=== PATIENT | male | born 1945 | race Caucasian/White ===

== ENCOUNTER 2016-06-22 17:53 | Inpatient (IN) | payer OTHER ==
[~2016-06-22] VITALS: Ht 185.4 cm; Wt 115.0 kg
--- NOTE | ~2016-06-22 | H ---
[facility] [place] [address] HISTORY AND PHYSICAL Name: GARRETCHRYSTAL IESHA Room #: 202-P ADM IN M.R.#: [id number] Admission: 06/22/16 Attend Phys: Theodora Pacheco MD Discharge: Date of : 49 Report #: [id number] THIS REPORT FOR: //name// CC: Katelynn Pacheco DATE OF ADMISSION: 06/22/2016 DATE SEEN: 06/22/2016 ATTENDING PHYSICIAN: Dr. Theodora Pacheco. PRIMARY CARE PHYSICIAN: Katelynn Brown DO CHIEF COMPLAINT: Altered mental status. HISTORY OF PRESENT ILLNESS: The patient is a 70-year-old male who was brought into the ER by his daughter due to confusion. 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 He became more lethargic and was not replying when asked questions, and so they brought him into the ER. He does have a recent history of influenza and had been on influenza B and had been on Tamiflu and was sick for about a week, but then his symptoms has improved. This was about 2-3 weeks ago. He was also acting short of breath. He does have a history of COPD. His reported that he has 30% use of his lungs. He does wear 6 liters of oxygen at home. His daughter thought he had been having an increased cough. In the ER, he was febrile on arrival with a temperature of 38.6. He was also tachypneic. His mentation improved somewhat after fluid bolus. He was incontinent of stool in the ER as well and was very loose. He was given a dose of Ativan because of anxiety and Tylenol and a breathing treatment. The patient remains confused. He is unable to tell me the current date including the month or the year. When asked the day he kept stating his birthday. He was able to tell me it was Saturday night. He is somewhat fidgety and trying to hit buttons on his call light. As I am talking to him, he is only answering questions and one word responses. He does remain alert. PAST MEDICAL HISTORY: Oxygen dependent COPD, PE, degenerative joint disease. PAST SURGICAL HISTORY: Right hip replacement and bilateral inguinal hernia repair. ALLERGIES: None. HOME MEDICATIONS: Albuterol inhaler 2 puffs q. 4 hours p.r.n., fish oil 1000 mg daily, [place] 10/325 one tab q. 4 hours p.r.n. pain, clonazepam 1 mg b.i.d., [address] [address] HISTORY AND PHYSICAL Name: CHRYSTAL COMBS Room #: [facility] IN M.R.#: [id number] Admission: 06/22/16 Attend Phys: Theodora Pacheco MD Discharge: Date of : 49 Report #: [id number] Colace 100 mg daily, multivitamin daily. SOCIAL HISTORY: The patient is an ex-smoker, having quit in 1977, according to old records, he had been a previous smoker up to a pack per day for 16 years. He states he is retired, but apparently his family states he still occasionally works as a chiropractor. No reports of any prior alcohol or drug use. He lives at home with his . FAMILY HISTORY: Significant for heart disease and colon cancer according to previous records. REVIEW OF SYSTEMS: Unobtainable due to altered mental status. PHYSICAL EXAMINATION: GENERAL: The patient is a confused male in no acute distress. VITAL SIGNS: Temperature is 38.6, heart rate 103, respirations 26 and blood pressure is 141/75, oxygen 91% on 6 liters O2. HEENT: PERRLA. Sclerae is nonicteric. Oral mucosa is pink and dry. He does have some cracked lips since and whitish coating on his teeth. NECK: Supple, no JVD noted. CARDIOVASCULAR: Normal S1, S2. No murmurs, rubs or gallops. RESPIRATORY: Breath sounds are clear throughout. No wheezing or rhonchi. His breathing is somewhat shallow and labored appearing and he has a mouth breather. ABDOMEN: Round, soft, nontender with hypoactive bowel sounds. VASCULAR: Pedal pulses are 1+ bilaterally. His feet are somewhat cool. No peripheral edema noted. NEUROLOGIC: The patient is alert, but confused. He is unable to tell me the current month or year and he just kept repeating his date when asked the current date. He will follow commands. He is somewhat restless in bed, but he was moving everything equally. He is minimally communicative. He really only answers in one word sentences. SKIN: Intact. No rashes or lesions. LABORATORY AND DIAGNOSTIC DATA: WBC is 9.3, hemoglobin 16.3, platelets 244. Sodium is 139, potassium 4.0, BUN 20, creatinine 1.1, glucose 112. Lactate 1.2. LFTs are within normal limits. Troponins negative. Alcohol level is less than 10. Chest x-ray showed no acute findings. CT of the abdomen does show findings more suggestive of mild nonspecific colitis involving the ascending and transverse colon. No other acute appearing abnormalities are identified and EKG showing sinus tachycardia, rate of 103 with an old inferior infarct. ASSESSMENT AND PLAN: 1. Systemic inflammatory response syndrome. Source of infection is likely colitis, although we do need to rule out UA waiting on urinalysis. We will follow blood cultures, he has received 2 liters of fluid in the ER already, continue with maintenance fluids, his blood pressure is stable. Continue with [facility] [address] [place] [address] HISTORY AND PHYSICAL Name: CHRYSTAL COMBS Room #: 202-P ADM IN M.R.#: [id number] Admission: 06/22/16 Attend Phys: Theodora Pacheco MD Discharge: Date of : 49 Report #: [id number] Cipro and Flagyl and Tylenol p.r.n. 2. Colitis, see above. We will also add stool for culture and C. difficile and keep him on clear liquids. 3. Altered mental status, likely toxic encephalopathy related to underlying infection. We did check an ABG after arrival to the floor and it was other than some mild hypoxia, was within normal limits. Continue to monitor neuro status. 4. Chronic hypoxic respiratory failure. He does have oxygen dependent COPD. His ABGs do not show any CO2 retention, we will continue with oxygen and add breathing treatments, chest x-ray was clear. 5. Deep vein thrombosis prophylaxis: Start Lovenox. We will continue to follow the patient closely throughout the hospitalization and make changes based on clinical status. <ELECTRONICALLY SIGNED> By: GÓMEZ Shen 06/23/16 0433 0110 0348 GÓMEZ Shen /nt
--- NOTE | ~2016-06-22 | EKG ---
[address] [place] [address] ELECTROCARDIOGRAM REPORT Name: CHRYSTAL COMBS Room #: 202-P ADM IN M.R.#: [id number] Admission: 06/22/16 Attend Phys: Theodora Pacheco MD Discharge: Date of : 49 Report #: [id number] THIS REPORT FOR: //name// [facility] ED Test Date: 2016-06-22 Test Time: 18:13:40 Pat Name: CHRYSTAL COMBS Department: Room: 202 Gender: M Pathology Teacher: KKODJOVI : 1945 Requested By: Elisa Modi Order Number: [id number] MD: Salty Ordonez Measurements Intervals [place] Rate: 103 P: 42 OK: 153 QRS: 84 QRSD: 105 T: 63 QT: 331 QTc: 434 Interpretive Statements Sinus tachycardia Right ventricular conduction delay Compared to ECG 06/15/2013 09:11:58 no significant change was found Electronically Signed On 06-24-2016 14:54:16 CDT by Salty Ordonez [email or web address] <ELECTRONICALLY SIGNED> By: Salty Ordonez MD, [facility] 06/24/16 1454 12 12 Salty Ordonez MD, FAC /EPI
--- NOTE | ~2016-06-22 | S ---
[facility] [place] [address] SURGICAL PATH RPT PROCEDURE Name: CHRYSTAL COMBS Room #: 202-P DIS IN M.R.#: [id number] Admission: 06/22/16 Date of : 49 Discharge: 06/27/16 Report #: [id number] Path Case #: [id number] PATHOLOGY REPORT COLLECTION DATE: 06/26/2016 RECEIVED DATE: 06/26/2016 SUBMITTING PHYS: Dr. Jg Dudley OTHER PHYS: Dr. Marco Brown SPECIMEN(S) RECEIVED: A.Cecum and ascending colon bx B.Transverse and splenic flex colon bx * * * * * * * * * * * * FINAL DIAGNOSIS: A. "Cecum and ascending colon bx," biopsy: - Colonic mucosa with mild diffuse and active acute colitis. (see comment) B. "Transverse splenic flex colon bx," biopsy: - Colonic mucosa with mild diffuse and active acute colitis. (see comment) COMMENT: Both specimens A and B are similar histologically. The pattern of inflammation is suggestive of acute infectious type colitis. Chronic idiopathic inflammatory bowel disease is also a diagnostic consideration but is considered less likely. Significant chronic architectural changes are absent. Clinical and endoscopic correlation is required. No dysplasia is seen in either of the biopsies. (CLW:; d/t: 06/27/16) PATHOLOGIST: Jessie Avila M.D. REPORT ELECTRONICALLY SIGNED BY: Jessie Avila M.D. DATE/TIME: 06/27/2016 22:03 * * * * * * * * * * * * GROSS PATHOLOGY: A. Received in formalin labeled "Chrystal Combs, cecum and ascending colon biopsy, colitis, R/O IBD," are five segments of mercedes soft tissue measuring 0.8 x 0.8 x 0.1 cm in aggregate dimensions and ranging from 0.2 to 0.5 cm in maximum dimension. The specimen is submitted entirely in cassette A1. B. Received in formalin labeled "Chrystal Combs, transverse and splenic [address] [address] SURGICAL PATH RPT PROCEDURE Name: CHRYSTAL COMBS Room #: 202-P DIS IN M.R.#: [id number] Admission: 06/22/16 Date of : 49 Discharge: 06/27/16 Report #: [id number] Path Case #: [id number] flexure biopsy, colitis, R/O IBD," are five segments of mercedes soft tissue measuring 1.0 x 0.8 x 0.2 cm in aggregate dimensions and ranging from 0.3 to 0.5 cm in maximum dimension. The specimen is submitted entirely in cassette B1. (CAA; 06/26/2016) CLINICAL HISTORY: Pre-op diagnosis: Abnormal CT, colitis Post-op diagnosis: Colitis, R/O IBD INITIAL CPT CODE(S): A; 69082 B; 75404 Professional services performed by [facility] at [address] , [place] [address] Technical services performed by [facility] at [address] [place] [address], [address], [place] [address]. [facility] [address] [place] [address] PHONE: [phone] DIRECTOR: Carter Ladd M.D. * * * END OF REPORT * * *
[~2016-06-22 17:53] MED LIST: ACCUNEB SO1.25 MG/1 INH; ALBUTEROL2.5 MG/0.1 INH; CLONAZEPAM 0.50.5 M1 PO; CLONAZEPAM 1 MG1 M1 PO; COLACE100 MG PO; COMBIVENT INH; COMBIVENT RESPIM4 GM INH; FISH OIL + D31 EACH PO; HAIR, SKIN & N1 EAC1 PO; MULTI VITAMIN1 EACH PO; NORCO 5-325 TA1 EACH PO; NYSTATIN15 GM; OMEGA-31000 M1 PO; PROAIR HFA8.5 GM INH; REMERON 30 MG T30 M1 PO; RESTORIL30 MG PO; SENNA PO; SYMBICORT160 MCG/4. INH; XARELTO15 MG PO; XARELTO20 MG PO
[2016-06-22 17:54] VITALS: BP 141/75
[2016-06-22 18:15] LABS: ABSOLUTE NEUTROPHILS 7.3 thou/uL (1.4-8.2); BASOPHILS 0.5 % (0.0-2.0); EOSINOPHILS 0.2 % (0.0-3.0); HEMATOCRIT 47.5 % (42.0-52.0); HEMOGLOBIN 16.3 gm/dL (14.0-18.0); LYMPHOCYTES 11.5 % (24.0-44.0); MCH 30.1 pg (26.0-34.0); MCHC 34.3 g/dL (28.0-37.0); MCV 87.8 fL (80.0-100.0); MONOCYTES 9.5 % (1.0-8.0); PLATELET COUNT 244 thou/uL (150-400); POLYS 78.3 % (36.0-66.0); RBC 5.41 mil/uL (4.50-6.00); RDW 14.7 % (10.5-14.5); WBC 9.3 thou/uL (4.0-11.0)
[2016-06-22 18:18] LABS: MANUAL DIFF NO
[2016-06-22 18:26] LABS: ANION GAP 8 mmol/L (7-16); BUN 20 mg/dL (7-18); CALCIUM 9.7 mg/dL (8.5-10.1); CHLORIDE 102 mmol/L (98-107); CO2 29 mmol/L (21-32); CREATININE 1.1 mg/dL (0.7-1.3); GLUCOSE 112 mg/dL (74-106); SODIUM 139 mmol/L (136-145)
[2016-06-22 18:36] LABS: ALBUMIN 3.6 g/dL (3.4-5.0); ALKALINE PHOSPHATASE 63 U/L (46-116); SGOT 34 U/L (15-37); SGPT 48 U/L (30-65); TOTAL BILIRUBIN 0.6 mg/dL (<0.1-1.0); TOTAL PROTEIN 8.1 g/dL (6.4-8.2); TROPONIN-I < 0.04 ng/mL (<0.04-0.07)
[2016-06-22 21:29] VITALS: BP 150/74
[2016-06-22 22:00] VITALS: BP 131/74
[2016-06-23 00:26] LABS: ABG SAMPLE TYPE ARTERIAL; BE(vivo) -3.1 mmol/L (-2 to +3); HCO3 20.2 mmol/L (22.0-26.0); LACTATE 1.12 mmol/L (0.5-2.0); O2Hb 93.6 % (92.0-98.0); PCO2 31.2 mmHg (35.0-45.0); STICK SITE L.RADIAL; pH 7.428 (7.360-7.450); sO2 94.5 % (92.0-98.0); tCO2 21.1 mmol/L (24.0-30.0)
[2016-06-23 04:12] LABS: HEMATOCRIT 41.3 % (42.0-52.0); HEMOGLOBIN 14.4 gm/dL (14.0-18.0); MCH 30.4 pg (26.0-34.0); MCHC 34.8 g/dL (28.0-37.0); MCV 87.3 fL (80.0-100.0); RBC 4.72 mil/uL (4.50-6.00); RDW 14.4 % (10.5-14.5); WBC 10.4 thou/uL (4.0-11.0)
[2016-06-23 04:19] LABS: CALCIUM 8.6 mg/dL (8.5-10.1); CREATININE 0.9 mg/dL (0.7-1.3); POTASSIUM 3.6 mmol/L (3.5-5.1)
[2016-06-23 05:26] LABS: URINE BILIRUBIN NEGATIVE (Negative); URINE BLOOD 2+ (Negative); URINE COLOR YELLOW; URINE GLUCOSE-RANDOM* NEGATIVE (Negative); URINE KETONES 1+ (Negative); URINE LEUKOCYTES-REFLEX NEGATIVE (Negative); URINE PROTEIN (DIPSTICK) NEGATIVE (Negative); URINE SPECIFIC GRAVITY 1.025 (1.003-1.035); URINE UROBILINOGEN 0.2 E.U./dl (0.2-1.0)
[2016-06-23 05:34] LABS: SQUAMOUS 0-3 Few /LPF (0-3)
[2016-06-23 05:35] LABS: CASTS None Seen /LPF (None Seen); CRYSTALS None Seen /LPF (None Seen); URINE WBC-REFLEX 0-5 Rare /HPF (0-5)
[2016-06-23 08:00] VITALS: BP 200/103
[2016-06-23 08:54] LABS: ABG SAMPLE TYPE ARTERIAL; BE(vivo) -3.5 mmol/L (-2 to +3); HCO3 19.7 mmol/L (22.0-26.0); O2(CT) 20.2 mL/dL (15.0-23.0); O2Hb 94.5 % (92.0-98.0); PCO2 31.2 mmHg (35.0-45.0); PO2 72.2 mmHg (80.0-100.0); pH 7.419 (7.360-7.450); tCO2 20.7 mmol/L (24.0-30.0)
[2016-06-23 08:55] LABS: STICK SITE L.RADIAL
[2016-06-23 10:47] VITALS: BP 128/88
[2016-06-23 16:08] VITALS: BP 198/106
[2016-06-24 03:14] VITALS: BP 105/59
[2016-06-24 04:23] LABS: CALCIUM 8.9 mg/dL (8.5-10.1); CREATININE 0.9 mg/dL (0.7-1.3); POTASSIUM 3.6 mmol/L (3.5-5.1)
[2016-06-24 07:10] VITALS: BP 101/52
[2016-06-24 10:46] LABS: HEMATOCRIT 40.5 % (42.0-52.0); HEMOGLOBIN 13.5 gm/dL (14.0-18.0); MCH 29.5 pg (26.0-34.0); MCHC 33.3 g/dL (28.0-37.0); MCV 88.7 fL (80.0-100.0); PLATELET COUNT 214 thou/uL (150-400); RBC 4.56 mil/uL (4.50-6.00); RDW 14.7 % (10.5-14.5); WBC 11.1 thou/uL (4.0-11.0)
[2016-06-24 10:47] LABS: MANUAL DIFF YES
[2016-06-24 11:10] VITALS: BP 107/62
[2016-06-24 11:36] LABS: ABSOLUTE NEUTROPHILS 8.3 thou/uL (1.4-8.2); TOTAL CELL COUNT 100
[2016-06-24 11:37] LABS: ANISOCYTOSIS 1+
[2016-06-24 17:15] VITALS: BP 112/73
[2016-06-24 19:16] VITALS: BP 126/76
[2016-06-25 03:10] VITALS: BP 105/56
[2016-06-25 03:31] LABS: HEMATOCRIT 37.5 % (42.0-52.0); HEMOGLOBIN 12.9 gm/dL (14.0-18.0); MCH 29.9 pg (26.0-34.0); MCHC 34.3 g/dL (28.0-37.0); RBC 4.3 mil/uL (4.50-6.00); RDW 13.9 % (10.5-14.5)
[2016-06-25 03:44] LABS: CREATININE 0.8 mg/dL (0.7-1.3); POTASSIUM 3.5 mmol/L (3.5-5.1)
[2016-06-25 08:00] VITALS: BP 122/65
[2016-06-25 16:27] VITALS: BP 124/81
[2016-06-25 19:24] VITALS: BP 122/6
[2016-06-26 00:01] VITALS: BP 106/66
[2016-06-26 03:27] VITALS: BP 133/74
[2016-06-26 10:00] VITALS: BP 136/79
[2016-06-26 10:16] LABS: WBC 9.9 thou/uL (4.0-11.0)
[2016-06-26 10:17] LABS: HEMATOCRIT 40.9 % (42.0-52.0); HEMOGLOBIN 13.9 gm/dL (14.0-18.0); MCHC 33.9 g/dL (28.0-37.0); MCV 88.4 fL (80.0-100.0); PLATELET COUNT 248 thou/uL (150-400); RBC 4.63 mil/uL (4.50-6.00); RDW 14.8 % (10.5-14.5)
[2016-06-26 10:20] LABS: MANUAL DIFF YES
[2016-06-26 11:15] LABS: ABSOLUTE NEUTROPHILS 6.4 thou/uL (1.4-8.2); TOTAL CELL COUNT 100
[2016-06-26 11:22] LABS: CALCIUM 8.6 mg/dL (8.5-10.1); CREATININE 0.8 mg/dL (0.7-1.3); POTASSIUM 3.2 mmol/L (3.5-5.1)
[2016-06-26 16:15] VITALS: BP 109/56
[2016-06-26 19:14] VITALS: BP 132/55
[2016-06-27] VITALS (7 sets, daily range): BP systolic 132–144; BP diastolic 70–86
[2016-06-27 03:15] LABS: HEMATOCRIT 38.3 % (42.0-52.0); MCH 29.6 pg (26.0-34.0); MCHC 33.8 g/dL (28.0-37.0); MCV 87.6 fL (80.0-100.0); RBC 4.38 mil/uL (4.50-6.00); RDW 14.6 % (10.5-14.5)
[2016-06-27 03:28] LABS: CALCIUM 8.9 mg/dL (8.5-10.1); CREATININE 0.8 mg/dL (0.7-1.3); POTASSIUM 3.5 mmol/L (3.5-5.1)
[2016-06-27] MEDS ORDERED: CIPRO500 MG PO (12:56)
[2016-06-27] MEDS ORDERED: FLAGYL500 MG PO (12:57)
[2016-06-27] MEDS ORDERED: FLOMAX0.4 MG PO (12:57)
== END 2016-06-27 18:40 | disposition home health service (06) | DRG 871 ==
LOC: ER 17:53 → EROBS 20:09 → 2N 20:09
PROVIDERS: Hospitalist; Nurse Practitioner Acute Care; Physician Assistant
PROC: 02HV33Z Insertion of Infusion Device into Superior Vena Cava, Percutaneous Approach (ICD-10-PCS; 2016-06-25)
PROC: B548ZZA Ultrasonography of Superior Vena Cava, Guidance (ICD-10-PCS; 2016-06-25)
PROC: 0DBH8ZX Excision of Cecum, Via Natural or Artificial Opening Endoscopic, Diagnostic (ICD-10-PCS; principal; 2016-06-26)
PROC: 0DBK8ZX Excision of Ascending Colon, Via Natural or Artificial Opening Endoscopic, Diagnostic (ICD-10-PCS; principal; 2016-06-26)
PROC: 0DBL8ZX Excision of Transverse Colon, Via Natural or Artificial Opening Endoscopic, Diagnostic (ICD-10-PCS; principal; 2016-06-26)
DX: A41.9 Sepsis, unspecified organism (principal); G92 Toxic encephalopathy; J44.1 Chronic obstructive pulmonary disease with (acute) exacerbation; K55.1 Chronic vascular disorders of intestine; J96.11 Chronic respiratory failure with hypoxia; E87.2 Acidosis; M19.90 Unspecified osteoarthritis, unspecified site; E66.9 Obesity, unspecified; E86.0 Dehydration; Z96.641 Presence of right artificial hip joint; K52.9 Noninfective gastroenteritis and colitis, unspecified; Z79.899 Other long term (current) drug therapy; Z86.711 Personal history of pulmonary embolism; Z68.33 Body mass index [BMI] 33.0-33.9, adult; Z87.891 Personal history of nicotine dependence; Z99.81 Dependence on supplemental oxygen; Z82.49 Family history of ischemic heart disease and other diseases of the circulatory system; Z80.0 Family history of malignant neoplasm of digestive organs
CPT/HCPCS: 10081; 27001; 52295; 62110; 62900; 70005

== ENCOUNTER → 2018-05-05 | Outpatient (CLI) | payer OTHER ==
[~2018-05-05] MED LIST changes: +CIPRO500 MG PO; +FLAGYL500 MG PO; +FLOMAX0.4 MG PO
== END ==
LOC: CAT 08:23
DX: Z13.6 Encounter for screening for cardiovascular disorders (principal); E78.00 Pure hypercholesterolemia, unspecified; Z82.49 Family history of ischemic heart disease and other diseases of the circulatory system

== ENCOUNTER 2019-03-28 23:43 | Inpatient (IN) | payer OTHER ==
[~2019-03-28] VITALS: Ht 185.4 cm; Wt 104.4 kg
[2019-03-28 23:48] LABS: BE(vivo) -0.4 mmol/L (-2 to +3); HCO3 26.5 mmol/L (22.0-26.0); PCO2 51.4 mmHg (35.0-45.0); PO2 198.2 mmHg (80.0-100.0); sO2 99.3 % (92.0-98.0)
[2019-03-29] VITALS (22 sets, daily range): BP systolic 91–157; BP diastolic 44–90
[2019-03-29 00:28] LABS: ABSOLUTE NEUTROPHILS 8.5 thou/uL (1.4-8.2); BASOPHILS 0.6 % (0.0-2.0); EOSINOPHILS 0.6 % (0.0-3.0); HEMATOCRIT 46.3 % (42.0-52.0); HEMOGLOBIN 15.3 gm/dL (14.0-18.0); MCH 29.6 pg (26.0-34.0); MCV 89.9 fL (80.0-100.0); PLATELET COUNT 232 thou/uL (150-400); POLYS 77.8 % (36.0-66.0); RBC 5.14 mil/uL (4.50-6.00); RDW 13.9 % (10.5-14.5); WBC 10.9 thou/uL (4.0-11.0)
[2019-03-29 00:31] LABS: ANION GAP 11 mmol/L (7-16); BUN 11 mg/dL (7-18); CALCIUM 9.2 mg/dL (8.5-10.1); CHLORIDE 104 mmol/L (98-107); CO2 27 mmol/L (21-32); CREATININE 0.8 mg/dL (0.7-1.3); GLUCOSE 160 mg/dL (74-106); POTASSIUM 3.5 mmol/L (3.5-5.1); SODIUM 142 mmol/L (136-145)
[2019-03-29] MEDS ORDERED: DALIRESP500 MCG PO (00:38)
[2019-03-29] MEDS ORDERED: AZITHROMYCIN500 MG PO (00:39)
[2019-03-29 00:41] LABS: MAGNESIUM 1.8 mg/dL (1.8-2.4); TROPONIN-I <0.06 ng/mL (<0.06)
[2019-03-29] MEDS ORDERED: FLONASE 0.05%50 MCG NASAL (00:42)
[2019-03-29] MEDS ORDERED: TRELEGY ELLIPT1 EACH INH (00:42)
--- NOTE | 2019-03-29 04:15 | NUR ---
Pt admit to ICU. AAOx4 and anxious noted. He is shortness of breath with any activity, currently on BIPAP due to respiratory failure. Denies of any CP or chest discomfort. Hx obtain, care plans are initiated, continue working toward goals.
--- NOTE | 2019-03-29 10:29 | EKG ---
[place] [address] [facility] [place] [address] ELECTROCARDIOGRAM REPORT Name: CHRYSTAL COMBS Room #: 238-P ADM IN M.R.#: [id number] Admission: 03/29/19 Attend Phys: Yelena Trevino MD Discharge: Date of : 49 Report #: [id number] THIS REPORT FOR: //name// [facility] ED Test Date: 2019-03-29 Test Time: 01:29:29 Pat Name: CHRYSTAL COMBS Department: Room: 238 Gender: M [employer] R12 Developer: MPARK : 1945 Requested By: Julisa Laboy Order Number: [id number] MD: Dennis Dangelo Measurements Intervals [place] Rate: 99 P: 64 DE: 166 QRS: 60 QRSD: 114 T: 63 QT: 395 QTc: 507 Interpretive Statements Sinus rhythm Incomplete right bundle branch block Inferior infarct, old Prolonged QT interval Compared to ECG 06/22/2016 18:13:40 Prolonged QT interval now present Sinus tachycardia no longer present Electronically Signed On 03-29-2019 10:28:43 STEEL RULE DIE MAKER APPRENTICE by Dennis Dangelo [email or web address] <ELECTRONICALLY SIGNED> By: Dennis Dangelo MD 03/29/19 1028 0129 012 Dennis Dangelo MD /SHEBA
--- NOTE | 2019-03-29 17:38 | NUR ---
ASSUMED CARE AT SHIFT CHANGE, ALERT AND ORIENTED X4. VSS AND SR ON THE MONITOR. PATIENT REQUESTED THE OPTIFLOW, WAS PUT ON OPTOFLO AND JOSEFINA REMAINED 89-95. VISITED AND WILL CONTINUE WITH POC.
[2019-03-30] VITALS (19 sets, daily range): BP systolic 77–179; BP diastolic 45–96
--- NOTE | 2019-03-30 06:00 | NUR ---
AWAKE AND ALERT. A VERY SWEET GENTLEMAN. LUNGS REMAIN DIMINISHED. AFEBRILE. BIPAP 70 % VOIDED 700 CC JOSE URINE. BATHED. REMAINS IN ISOLATIION + FLU WILL CONT TO MONITOR.
[2019-03-30 06:18] LABS: CALCIUM 9.1 mg/dL (8.5-10.1); CREATININE 0.9 mg/dL (0.7-1.3); POTASSIUM 3.8 mmol/L (3.5-5.1)
--- NOTE | 2019-03-30 13:52 | NUR ---
Assumed care at 0700. PT was on BIPAP and requesting to be changed to the optiflow. Dr. Hazel and Dr. Reyes rounded on the PT and spoke with his at bedside. Optiflow as placed on PT at 45L and 50% FIO2. PT tolerating it well. PT appeared irritable and asking for more clonazapam after lunch. PT told nurse this morning he takes 1 pill a day then stated this afternoon he takes it 3-4 times a day. According to his medication history it was reported he takes the medication BID. Dr. Hazel was notified of PT's request. Provider stated he would not change the order from BID because the PT could overdose on a higher amount. Nurse educated the PT who was upset about the order remaining BID. Nurse educated the PT on the dangers of potential overdosing but PT stated "you guys don't have any idea what you're talking about. I take it all the time.". Nurse asked the PT if he would be agreeable to going back on the BIPAP as his oxygen saturation was consistently staying 87-88% on the optiflow. PT appeared to have labored breathing and lungs sound more coarse. PT was hesitant at first but after much education he agreed to go on the BIPAP. Oxygen saturation is now 100%. Call light is within reach. Fall precautions in place. Nurse will continue to monitor.
--- NOTE | 2019-03-30 18:15 | NUR ---
PATIENT'S CAME THIS EVENING AND STATED THAT HE IS NORMALLY ON 12L HIGH FLOW AT HOME. ICU GUIDELINES/VISITING HOURS AND PRIVACY CODE PROVIDED.
[2019-03-31] VITALS (19 sets, daily range): BP systolic 150–192; BP diastolic 76–102
--- NOTE | 2019-03-31 00:17 | NUR ---
PATIENTS SBP IN 160'S-180'S, BP CURRENTLY 185/99. PT ASKED MULTIPLE TIMES IF HE WOULD TAKE MEDICATION FOR HIS BLOOD PRESSURE. PT STATES HE DOESN'T TAKEN ANYTHING FOR IT AT HOME, SO HE REFUSES TO TAKE ANYTHING IN THE HOSPITAL FOR BLOOD PRESSURE. WILL CONTINUE TO EDUCATE PATIENT.
[2019-03-31 05:31] LABS: BE(vivo) 1.6 mmol/L (-2 to +3); HCO3 27.8 mmol/L (22.0-26.0); PCO2 50.3 mmHg (35.0-45.0); PO2 170.1 mmHg (80.0-100.0); pH 7.361 (7.360-7.450); sO2 99.1 % (92.0-98.0)
[2019-03-31 05:32] LABS: ABSOLUTE NEUTROPHILS 12.8 thou/uL (1.4-8.2); BASOPHILS 0.3 % (0.0-2.0); HEMATOCRIT 40.8 % (42.0-52.0); HEMOGLOBIN 13.6 gm/dL (14.0-18.0); LYMPHOCYTES 3.8 % (24.0-44.0); MCH 29.7 pg (26.0-34.0); MCHC 33.2 g/dL (28.0-37.0); MCV 89.5 fL (80.0-100.0); PLATELET COUNT 194 thou/uL (150-400); POLYS 92.9 % (36.0-66.0); RBC 4.57 mil/uL (4.50-6.00); RDW 14.1 % (10.5-14.5); WBC 13.8 thou/uL (4.0-11.0)
[2019-03-31 05:41] LABS: CREATININE 0.8 mg/dL (0.7-1.3); POTASSIUM 4.6 mmol/L (3.5-5.1); TOTAL BILIRUBIN 0.6 mg/dL (<0.1-1.0); TOTAL PROTEIN 6.8 g/dL (6.4-8.2)
--- NOTE | 2019-03-31 10:29 | NUR ---
PT ADMITTED RELATED TO INFLUENZA/COPD /PNA /RESPIRATORY FAILURE. CM REVIEWED CHART AND SPOKE WITH CARE TEAM. CM MET WITH PT AT BEDSIDE THIS DAY PT WAS SOA AND ASKED THAT CM SPEAK WITH HIS . CM CALLED PT'S SPOUSE. SHE INDICATED THAT PT HAD BEEN LIVING IN A HOUSE WITH HER WITH A RAMP TO ENTER THROUGH THE GARAGE AND A STAIR LIFT DOWN TO A FINISHED BASEMENT. SHE INDICATED NO STEPS THAT PT USES INSIDE. SPOUSE INDICATED THAT PT USES 12L 02 CONTINUOUSE AT HOME TWO CONCENTRATORS ON 6L WITH A CPAP AT NIGHT [facility]ROUGH [facility]. SPOUSE INDICATED THAT PT HAD [facility] YEARS AGO AND THAT THEY MIGHT BE RECEPTIVE TO HH IF NEEDED UPON DC BUT THAT THEY PREFER THAT PT RETURN HOME UPON DC. SPOUSE ASKED ABOUT PORTABLE O2 THAT GOES UP TO 12L. CM TO FOLLOW INDICATED WITH DC PLANNING.
--- NOTE | 2019-03-31 11:05 | NUR ---
PT ALERT AND ORIENTED TIMES FOUR BLUNTED AFFECT WITH PERIODS OF CONFUSION. PT BLOOD PRESSURE ELEVATED, PT CONTINUES TO REFUSE BP MEDICATIONS. OTHER VSS, IVF INFUSING PER ORDER. PT C/O PAIN PRN PAIN MEDICATIONS CONTROLLING PAIN WELL. PT TOLERATES MEDS AND MEALS. AT BEDSIDE THIS MORNING. WILL CONTINUE TO MONITOR.
[2019-04-01] VITALS (19 sets, daily range): BP systolic 161–205; BP diastolic 77–122
--- NOTE | 2019-04-01 15:15 | NUR ---
decreasing anxiety related to return to his antianxiety med home dosing routine. alert/oriented, occasionally forgetful, SR, moist cough into back of throat then swallows secretions. tolerating diet, large amount urine output, present in am and present to speak with Dr. Reyes and Dr. Jones.
--- NOTE | 2019-04-01 17:30 | NUR ---
TRANSFERRED TO 352 PER ICU BED ON STRATEGIC PLANNING CONSULTANT AND 100% NONREBREATHER. ACCOMPANIED BY SHALA VALDOVINOS AND PT'S SPOUSE. REPORT PREVIOUSLY GIVEN TO [place] KURTZ AT 1530, UPDATED ON PT CARE. PT SHAVED PRIOR TO LEAVING ICU.
--- NOTE | 2019-04-02 02:06 | NUR ---
ASSUMED CARE FROM PREVIOUS SHIFT PT RESTING IN BED WITH PTIFLOW INTACT SAT 95% MARBELLA SOA, LUNG SOUNDS DIMINISHED WITH FINE WHEEZES IN BASES . HS MEDICATION TAKEN THEN PT WAS PLACED ON BIPAP TOLERATING WELL, PT RESTING THROUGHOUT HOURLY ROUNDS, IVF INFUSING WELL. NSR ON EXTRACTOR OPERATOR WILL CONINTUE WITH CURRENT POC AND WILL REPORT CHANGES OR ABNORMAL FINDINGS.
[2019-04-02 07:59] VITALS: BP 171/94
[2019-04-02 09:07] LABS: HEMATOCRIT 43.6 % (42.0-52.0); HEMOGLOBIN 14.4 gm/dL (14.0-18.0); MCH 29.6 pg (26.0-34.0); MCV 89.8 fL (80.0-100.0); PLATELET COUNT 225 thou/uL (150-400); RBC 4.86 mil/uL (4.50-6.00); RDW 13.6 % (10.5-14.5)
[2019-04-02 09:55] LABS: ABSOLUTE NEUTROPHILS 8.9 thou/uL (1.4-8.2)
[2019-04-02 09:56] LABS: ANISOCYTOSIS SLIGHT
[2019-04-02 11:22] VITALS: BP 161/80
--- NOTE | 2019-04-02 15:02 | NUR ---
SW reviewed chart and spoke with nursing and attending physician. Pt was transferred to from ICU. Pt in droplet isolation for Influenza. PT/OT ordered to evaluate pt. MATTHEW is following to assist as needed with discharge planning.
--- NOTE | 2019-04-02 15:49 | NUR ---
ASSUMED CARE AT SHIFT CHANGE, ALERT AND ORIENTED X4. FORGETFUL. BP ELEVATED, SCHEDULED MEDS GIVEN AND BP DOWN 161/80. OTHER VSS. MEDICATED FOR ANXIETY SCHEDULED, AND PATIENT ASKED RT TO PUT BACK ON BYPIP. AND WILL CONTINUE WITH POC.
[2019-04-02 15:57] VITALS: BP 170/84
[2019-04-02 19:37] VITALS: BP 173/92
--- NOTE | 2019-04-03 04:07 | NUR ---
PT MOVED TO BIPAP AT APPROX 22O0 HOURS. PT HAD EXTERNAL CONDOM CATH PLACED. PAIN MANAGEMENT AND ISOLATION PRECAUTIONS IN PLACE. A/0X4, TELE MONITOR SHOWS INTERMITTENT BBB. ISOLATION AND FALL PRECAUTIONS IN PLACE.
[2019-04-03 04:09] VITALS: BP 164/79
[2019-04-03 07:55] VITALS: BP 143/66
--- NOTE | 2019-04-03 14:07 | NUR ---
Nutrition: Pt assessed for early day 5 LOS. Admit: influenza, pneumonia, COPD, respiratory failure. Just transferred out of ICU yesterday. Despite acuity of illnesses, pt doing quite well w/ meal intakes. Averaging > 2/3 of meals from 03/29 - 04/02 and even managed 73% of meals yesterday alone. During visit, pt does report limited appetite, which is to be expected. Reviewed upcoming dinner (hamburger). Pt would like to add cheese to this and a small cup of ice cream. RD will approve. Recent BM 04/02. Overall, down ~6# since admit from 257# on 03/29 to 251# on 04/03. Encouraged prioritizing bites of protein first at meals, before side dishes, in event of early satiety. Keep as low nutrition risk given very adequate meal intakes.
[2019-04-03 15:55] VITALS: BP 175/98
--- NOTE | 2019-04-03 15:57 | NUR ---
SW reviewed chart and spoke with nursing and attending physician. Pt is slowly progressing towards goals for discharge. SW met with pt and at bedside. SW discussed recommendation for post-acute placement. Pt and asked about [facility] for rehab. SW explained need for evaluation, rehab dx, tolerance of 3 hours of therapy and need for insurance authorization. Pt and verbalize understanding. SW provided pt and with list of in-network SNFs for review. Pt states he will need a bipap when he discharges home. SW explained that he will need an outpatient sleep study for bipap. Pt's states that he already has a cpap machine, but needs a bipap. Pt and spouse are not interested in a home trilogy machine. No weekend discharge planned. SW discussed case with [facility] rehab nurse, who will put in a consult. Will need insurance authorization for post-acute placement. MATTHEW spoke with [facility], who states pt will still need an outpatient sleep study to qualify for a home bipap. MATTHEW is following to assist as needed with discharge planning.
--- NOTE | 2019-04-03 17:44 | NUR ---
PATIENT SEEN FOR REHAB CONSULT BY AVA GARCIA NP WITH DR. CORTEZ. PATIENT IS NOT READY FOR REHAB AT THIS TIME AND WILL BE REASSESSED 04/06/19 TO SEE IF PATIENT WOULD BE ABLE TO TOLERATE ACUTE REHAB THERAPIES. WILL CONTINUE TO FOLLOW. CARDIOVASCULAR RADIOLOGIC TECHNOLOGIST INFORMED. THANK YOU FOR THIS REFERRAL.
--- NOTE | 2019-04-03 19:28 | NUR ---
PATIENT NOTED TO HAVE ANXIETY THROUGH THE DAY. HE STATES HE TAKES XANAX AT HOME WHENEVER HE IS ANXIOUS. HE IS ALERT ORIENTED X4. USES URINAL. ON BIPAP AT THIS TIME.
[2019-04-03 19:35] VITALS: BP 180/94
[2019-04-03 23:22] VITALS: BP 163/84
[2019-04-04 04:48] VITALS: BP 173/87
--- NOTE | 2019-04-04 05:00 | NUR ---
ASSUMED PT CARE AROUND 1900. A&OX4, FORGETFUL. PT IS ANXIOUS AT TIMES AND ASKS FOR HIS CLONAZAPAM. ANXIETY IMPROVES WITH MEDICATION. PT WORE BIPAP THROUGHOUT THE NIGHT. HE BECOMES SOA WHEN OFF THE BIPAP AND ON THE OPTI-FLOW. HE WORE OPTI-FLOW FOR ABOUT AN HOUR THIS MORNING AND THEN O2 SATS DROPPED TO LOW 80S AND HE BECAME SOA. PLACED BACK ON BIPAP. VOIDS INDEPENDENTLY PER URINAL. PT SLEPT MOST OF THE NIGHT. FALL PRECAUTIONS IN PLACE. NOT PROGRESSING WELL TOWARD POC GOALS.
[2019-04-04 07:34] VITALS: BP 153/77
[2019-04-04 09:20] LABS: HEMATOCRIT 49.2 % (42.0-52.0); MCH 30.1 pg (26.0-34.0); MCHC 33.7 g/dL (28.0-37.0); MCV 89.4 fL (80.0-100.0); PLATELET COUNT 258 thou/uL (150-400); RDW 13.7 % (10.5-14.5); WBC 10.8 thou/uL (4.0-11.0)
[2019-04-04 09:25] LABS: HEMOGLOBIN 16.6 gm/dL (14.0-18.0)
[2019-04-04 09:34] LABS: ALBUMIN 3.3 g/dL (3.4-5.0); CALCIUM 9.6 mg/dL (8.5-10.1); POTASSIUM 3.2 mmol/L (3.5-5.1); TOTAL PROTEIN 7.9 g/dL (6.4-8.2)
[2019-04-04 09:58] LABS: ABSOLUTE NEUTROPHILS 9.2 thou/uL (1.4-8.2); ANISOCYTOSIS SLIGHT; ATYPICAL LYMPHS 1 %; METAMYELOCYTES 2 %
[2019-04-04 11:24] VITALS: BP 150/87
[2019-04-04 12:32] LABS: URINE BILIRUBIN NEGATIVE (Negative); URINE BLOOD NEGATIVE (Negative); URINE CLARITY CLEAR; URINE COLOR YELLOW; URINE GLUCOSE-RANDOM* NEGATIVE (Negative); URINE KETONES NEGATIVE (Negative); URINE LEUKOCYTES-REFLEX NEGATIVE (Negative); URINE NITRITE-REFLEX NEGATIVE (Negative); URINE PROTEIN (DIPSTICK) NEGATIVE (Negative); URINE SPECIFIC GRAVITY 1.015 (1.005-1.035); URINE UROBILINOGEN 0.2 E.U./dl (0.2-1.0)
[2019-04-04 15:39] VITALS: BP 129/106
[2019-04-04 16:29] VITALS: BP 125/77
[2019-04-04 20:20] VITALS: BP 118/66
--- NOTE | 2019-04-04 20:26 | NUR ---
Very high anxiety all shift. Refusing to take lasix "unless we place an indwelling catheter". Refused alternatives offered. Dr Cherry on unit, notified of pt unwilling to follow order. Dr. Cherry returned to bedside to discuss fragility of status and offer alternative focus of care to comfort measures if desired to clarify necessity for active participation on part of pt to save his own situation toward goal of returning to baseline. Did comply with orders to participate in relieving his congestive compromise and did become somewhat improved as evidenced by ability to sit up to bedside in chair for approximately an hour and with the return of pulse ox. to mid nineties from mid 80's in A.M. Was drug seeking the entire shift with constant requests for any narcotic, or other meds that might have sedative effects. Klonipin dose increased from 0.5mg to 1mg per Dr. cherry and rescheduled to home routine times. Did seek reassurance that returning to baseline was still possible, very fearful of decompensating stating that he's "afraid of dying". Well attendend by at bedside and did take a short nap this afternoon demonstrating some level of comfort for a time. Placed back on bipap at times this shift and again prior to shift change for the night.
--- NOTE | 2019-04-05 02:17 | NUR ---
ASSESSNMENT: PT REMAIN ALERT AND ORIENT TIMES THREE, STAND AT THE SIDE OF BED TO USE URINAL. VSS, AFEBRILE. SR PER MONITOR. PRN PAIN MEDICATIONS GIVEN WITH GOOD RESULTS. BIPAP DURING THE NIGHT, TOLERATING WELL. SLOW PROGRESS TOWARDS DC GOALS, WILL CONTINUE TO MONITOR.
[2019-04-05 04:44] VITALS: BP 123/66
[2019-04-05 07:29] VITALS: BP 131/81
[2019-04-05 11:15] VITALS: BP 112/63
[2019-04-05 17:06] VITALS: BP 113/68
[2019-04-05 19:33] VITALS: BP 123/85
--- NOTE | 2019-04-06 01:40 | NUR ---
ASSUMED CARE OF PT AT 1900HRS. PT IS AOX4 AND LETS NEEDS BE KNOWN. FALL PRECAUTION IN PLACE. PT REPORTED SOME PAIN AND PRN MEDS WERE USED. PT WAS PUT ON BIPAP FOR SLEEP. PT WAS ABLE TO GET COMFORTABLE AND SLEEP PART OF THE NIGHT. VSS AND NO S/S OF ACUTE DISTRESS. WILL CONTINUE TO MONITOR.
[2019-04-06 03:27] VITALS: BP 127/83
[2019-04-06 08:00] VITALS: BP 117/77
[2019-04-06 12:00] VITALS: BP 114/65
--- NOTE | 2019-04-06 12:36 | NUR ---
PATIENT UNABLE TO PARTICIPATE IN PHYSICAL THERAPY TODAY DUE TO PULMONARY DISTRESS. PATIENT MAY NEED TO GO ON BIPAP. IT IS VERY UNLIKELY THAT PATIENT WOULD BE UNABLE TO PARTICIPATE IN THERAPY THE REQUIRED 3 HOURS PER DAY. PATIENT IS NOT A CANDIDATE FOR 5N AT THIS TIME. TRIP FOLLOWER INFORMED. IF PATIENT'S MEDICAL/FUNCTIONAL STATUS CHANGES, WE WOULD BE HAPPY TO REASSESS. THANK YOU FOR THIS REFERRAL.
--- NOTE | 2019-04-06 14:19 | NUR ---
SW reviewed chart and spoke with nursing and attending physician. Pt is slowly progressing towards goals for discharge. 5N consulted and evaluated pt. Pt unable to participate with therapy today due to respiratory distress. Pt requiring high flow O2 and bipap. 5N rn rehab to discuss with pt and . Therapy to work with pt tomorrow. SW is following to assist as needed with discharge planning.
[2019-04-06 15:00] VITALS: BP 119/71
--- NOTE | 2019-04-06 18:55 | NUR ---
MACHINE ASSEMBLER SPOKE THIS EVENING WITH PATIENT AND PATIENT'S , JASON OCONNOR, REGARDING ACUTE REHAB. PATIENT WAS INFORMED THAT AT THIS TIME THE REQUIREMENTS OF ACUTE REHAB WOULD BE DIFFICULT FOR HIM TO TOLERATE (3 HOURS OF THERAPY A DAY) AND FOR THAT REASON PRISON OPTION WOULD BE RECOMMENDED. PATIENT/PATIENT'S HAD MANY QUESTIONS THAT COULD NOT BE ANSWERED BY MACHINE ASSEMBLER AND THEY WERE REFERRED TO PHYSICIANS AND SCISSORS SHARPENER TO ADDRESS CONCERNS. PATIENT/PATIENT'S WERE TOLD THAT IF PATIENT HAD A CHANGE IN TOLERANCE/ENDURANCE, THAT REHAB COULD REASSESS HIM FOR ACUTE REHAB SETTING. SOCAIL WORKER INFORMED OF PATIENT'S REQUEST FOR CALL ON 04/07/19. THANK YOU FOR THIS REFERRAL.
[2019-04-06 19:46] VITALS: BP 146/102
--- NOTE | 2019-04-06 20:01 | NUR ---
PATIENT HAS GONE BETWEEN BIPAP AND HIGHFLO O2 THROUGH THE DAY. HE IS ALERT ORIENTED X4. REFUSED TO DO THERAPY HE WAS TOO WEAK. STATES HE WILL TRY IN THE AM. HAS NOT COMPLAIN OF PAIN. HAD A BM TODAY. FAMILY HERE TO VISIT. WILL CONT WITH PLAN OF CARE.
[2019-04-06 20:46] VITALS: BP 137/91
--- NOTE | 2019-04-07 03:34 | NUR ---
Pt. very anxious and irritable at beginning of shift. at bedside. Scheduled clonazepam given with some relief. He also requested pain med for right hip ,leg and back pain . Hydrocodone x2 given with some relief. Pt. has been on BIPAP at 84% with O2 sat in the upper 90's. He gets short of breath with minimal exertion. Afebrile. Assisted to reposition upon request otherwise he turns himself. Bed alarm on for safety. Refused SCD's. He slept fair during the night. Slowly making progress towards care plan goals.
[2019-04-07 04:15] VITALS: BP 114/81
[2019-04-07 07:40] VITALS: BP 126/80
[2019-04-07 11:11] VITALS: BP 136/90
--- NOTE | 2019-04-07 14:58 | NUR ---
DISCHARGE PLAN IS TO HOME WITH HOME HEALTH SERVICES. PATIENT REFERRAL FAXED TO [facility] PER REQUEST. PATIENT WILL NEED NURSING, OT, PT, SWS, COMMUNITY [employer]ATE AND RT SERVICES. CALL PLACED TO [facility] TO NOTIFY.
[2019-04-07 15:22] VITALS: BP 131/78
--- NOTE | 2019-04-07 16:57 | NUR ---
SW reviewed chart and spoke with nursing and attending physician. Pt is slowly progressing towards goals for discharge. 5N rehab spec spoke with pt's regarding 5N declining pt due to low tolerance of therapy due to O2 needs. SW spoke with pt's via phone to provide update. SW discussed SNF placement v. Home with . Pt has DME in place and their home is handicapped accessible. Pt's states that pt would recover better at home. SW discussed HH services and provided options. No preference voiced. process planner to fax referral to [facility] for Home RN, PT, OT, SW, RT and [employer] services. Pt's states that they know that pt will need to do an outpatient sleep study to qualify for a home bipap machine. Pt's PCP is Dr. Katelynn Brown. SW attempted to meet with pt at bedside. Pt sleeping soundly during time of SW visit. SW is following to assist as needed with discharge planning.
--- NOTE | 2019-04-07 17:26 | NUR ---
ASSUMED CARE OF PT AT 0700. PT AOX4 IN NO ACUTE DISTRESS. VOICING VARIOUS COMPLAINTS, NONE IN PARTICULAR.. SHOWING IMPROVEMENT WITH PHYSICAL AND OCCUPATIONAL THERAPY TODAY. GOOD APPETITE. OTHERWISE NO REMARKABLE CHANGES TO REPORT.
[2019-04-07 19:29] VITALS: BP 132/78
--- NOTE | 2019-04-08 04:05 | NUR ---
Medicated for anxiety with some help. Requested pain med , hydrocodone given with some relief. Also requested sleep med . He slept fair during the night with BIPAP on otherwise he is on Optiflow when not using BIPAP. Afebrile. Able to turn self on bed. Voiding per urinal. Bed alarm on for safety. Making progress towards care plan goals.
[2019-04-08 04:13] VITALS: BP 141/85
[2019-04-08 04:29] LABS: HEMATOCRIT 43.4 % (42.0-52.0); HEMOGLOBIN 14.3 gm/dL (14.0-18.0); MCH 29.4 pg (26.0-34.0); MCHC 32.9 g/dL (28.0-37.0); MCV 89.6 fL (80.0-100.0); PLATELET COUNT 289 thou/uL (150-400); RBC 4.85 mil/uL (4.50-6.00); RDW 13.9 % (10.5-14.5); WBC 9.8 thou/uL (4.0-11.0)
[2019-04-08 04:30] LABS: ALBUMIN 2.7 g/dL (3.4-5.0); CALCIUM 8.8 mg/dL (8.5-10.1); CREATININE 0.7 mg/dL (0.7-1.3); POTASSIUM 3.8 mmol/L (3.5-5.1); TOTAL BILIRUBIN 1.1 mg/dL (<0.1-1.0); TOTAL PROTEIN 6.1 g/dL (6.4-8.2)
[2019-04-08 05:54] LABS: ABSOLUTE NEUTROPHILS 6.3 thou/uL (1.4-8.2)
[2019-04-08 05:55] LABS: ANISOCYTOSIS 1+; PLATELET ESTIMATE NORMAL; POIKILOCYTOSIS 1+
[2019-04-08 07:45] VITALS: BP 94/54
[2019-04-08 11:14] VITALS: BP 102/55
[2019-04-08 12:35] VITALS: BP 102/55
[2019-04-08 15:50] VITALS: BP 147/70
--- NOTE | 2019-04-08 16:37 | NUR ---
MATTHEW reviewed chart and spoke with nursing and attending physician. Attending physician states pt is back to his baseline and pt is ready for discharge home with HH services. [facility] can accept pt and stated they would be able to start care on Saturday. MATTHEW contacted HH liaison to request an earlier start date. Pt can be seen on Saturday. MATTHEW met with pt at bedside to provide update. Pt states that someone brought a small portable breathing machine device to show him today. MATTHEW spoke with pt's via phone to provide update. Pt's was unaware of anticipated discharge for tomorrow, as she has to make arrangements with her work tomorrow. MATTHEW explained that HH is in place. Pt's asking about small portable device that pt will discharge home with until pt does outpatient sleep study to qualify for a bipap. MATTHEW placed call to the pulmonary office and spoke with c python developer, Dr. Jameson. Dr. Reyes had requested [facility] evaluate pt for an ambulatory mini ventilator. Dr Jameson recommended to follow up with pulmonary office to speak with nursing officer to check status on device. MATTHEW asked attending physician to contact pt's to discuss discharge. MATTHEW is following to assist as needed with discharge planning.
--- NOTE | 2019-04-08 18:41 | NUR ---
ASSUMED PATIENT CARE AT 0700. ON HF 02. C/O BACK PAIN. SOB, DESAT WITH EXERTION. SLOWLY TOWARDS POC GOALS.
[2019-04-08 19:28] VITALS: BP 122/62
[2019-04-09 04:14] VITALS: BP 137/60
--- NOTE | 2019-04-09 05:43 | NUR ---
PT MAKING SLOW PROGRESS TOWARDS GOALS. TAKING PO PAIN MEDICATION FOR LEG AND BACK PAIN. SEE CHARTING. IV RIGHT HAND NOTED INFILTRATION OF DOXYCYCLINE DOSE THIS MORNING. SPOKE WITH PHARMACIST, MED IS NOT KNOWN SEVERE VESICANT, RECOMMENDED ICE PLACEMENT AT THE SITE AND OBSERVATION. IV REMOVED, AND ICE BAG PLACED. ALSO HAND/ARM ELEVATED. NOTED SLIGHT AMOUNT OF PINKISH COLOR OVER RIGHT HAND/WRIST WITH 1-2+ EDEMA. PT REFUSED TO HAVE ANOTHER IV STARTED. "I'M SUPPOSED TO GO HOME TODAY, I'M NOT HAVING ANY MORE IV'S STARTED." DID SPEAK WITH HUMAN RESOURCES TEAM MEMBER, ORDERS RECEIVED.
[2019-04-09 07:35] VITALS: BP 115/71
--- NOTE | 2019-04-09 10:39 | NUR ---
MATTHEW reviewed chart and spoke with nursing and attending physician. MATTHEW placed call to Pulmonary office to discuss order of breathing device. MATTHEW spoke with Kenneth, who states he will look into the matter, to see if a device has been ordered and when it will be delivered. Awaiting call back at this time. MATTHEW spoke with pt's via phone to provide update. MATTHEW updated [facility] liaison. MATTHEW is following to assist as needed with discharge planning.
[2019-04-09 11:23] VITALS: BP 102/51
[2019-04-09 16:10] VITALS: BP 112/70
[2019-04-09 19:31] VITALS: BP 110/48
[2019-04-10 07:23] VITALS: BP 111/72
[2019-04-10 08:04] VITALS: BP 111/72
--- NOTE | 2019-04-10 10:29 | NUR ---
MATTHEW reviewed chart. MATTHEW faxed progress note and order to [facility] for portable ventilator device. MATTHEW spoke with [facility] rep, Mercedes, to provide update. Paperwork will be processed and insurance to be verified. Mercedes states she is able to come to the hospital this afternoon to meet with pt and to provide education. MATTHEW is following to assist as needed with discharge planning.
[2019-04-10] MEDS ORDERED: PROTONIX 20 MG20 M1 PO (14:30)
[2019-04-10] MEDS ORDERED: DOXYCYCLINE HYC50 MG PO (14:30)
[2019-04-10] MEDS ORDERED: BENAZEPRIL HCL5 MG PO (14:30)
[2019-04-10] MEDS ORDERED: PREDNISONE 20 M20 M1 PO (14:30)
--- NOTE | 2019-04-10 16:31 | NUR ---
ASSUMED PATIENT CARE AT 1300. A/O X4. NO CGANGE ON THIS SFIFT. DC TO HOME WITH HH NOW.
== END 2019-04-10 16:36 | disposition home health service (06) | DRG 871 ==
LOC: ER 23:43 → ICU 03-29 03:35 → 3W 04-01 15:05 → ENTRNSPT 04-10 16:28 → 3W 04-10 16:36
PROVIDERS: Emergency Medicine Emergency Medical Services; Internal Medicine; Internal Medicine Pulmonary Disease; Nurse Practitioner Family; Pediatrics; ADMIT Hospitalist
PROC: 5A09457 Assistance with Respiratory Ventilation, 24-96 Consecutive Hours, Continuous Positive Airway Pressure (ICD-10-PCS; principal; 2019-04-05)
PROC: 5A09357 Assistance with Respiratory Ventilation, Less than 24 Consecutive Hours, Continuous Positive Airway Pressure (ICD-10-PCS; 2019-04-07)
PROC: 5A09357 Assistance with Respiratory Ventilation, Less than 24 Consecutive Hours, Continuous Positive Airway Pressure (ICD-10-PCS; 2019-04-08)
PROC: 5A09357 Assistance with Respiratory Ventilation, Less than 24 Consecutive Hours, Continuous Positive Airway Pressure (ICD-10-PCS; 2019-04-09)
DX: A41.89 Other specified sepsis (principal); J96.21 Acute and chronic respiratory failure with hypoxia; J96.22 Acute and chronic respiratory failure with hypercapnia; J10.00 Influenza due to other identified influenza virus with unspecified type of pneumonia; B97.89 Other viral agents as the cause of diseases classified elsewhere; M19.90 Unspecified osteoarthritis, unspecified site; E66.01 Morbid (severe) obesity due to excess calories; J45.909 Unspecified asthma, uncomplicated; Z96.643 Presence of artificial hip joint, bilateral; E66.9 Obesity, unspecified; F41.9 Anxiety disorder, unspecified; J43.9 Emphysema, unspecified; I25.10 Atherosclerotic heart disease of native coronary artery without angina pectoris; E78.5 Hyperlipidemia, unspecified; Z86.711 Personal history of pulmonary embolism; Z68.30 Body mass index [BMI] 30.0-30.9, adult; Z87.891 Personal history of nicotine dependence; Z82.49 Family history of ischemic heart disease and other diseases of the circulatory system; Z85.038 Personal history of other malignant neoplasm of large intestine
CPT/HCPCS: 10078; 10879